=== PATIENT | male | born 2000 | race African-American/Black ===

== ENCOUNTER 2021-02-17 14:11 | Emergency (ER) | payer MEDICAID ==
[~2021-02-17] VITALS: Ht 177.8 cm; Wt 68.0 kg
[2021-02-17] MEDS ORDERED: KETOROLAC 30MG/ML VIAL IM ONE (15:00)
[2021-02-17] MEDS ORDERED: DEXAMETHASONE 1MG TABLET PO ONE (15:00)
[2021-02-17] MEDS ORDERED: AMOXICILLIN/POTASSIUM CLAVULANATE 875/125MG TAB PO ONE (15:00)
[2021-02-17] MEDS ORDERED: ACET-2708 MT (15:01)
[2021-02-17] MEDS ORDERED: MELA10TA3 MT (15:01)
[2021-02-17] MEDS ORDERED: IBUP-2029 MT (15:01)
[2021-02-17] MEDS ORDERED: AMOX-424 MT (15:01)
[2021-02-17] MEDS ORDERED: DEXAMETHASONE 4MG TABLET PO STA (15:18)
[2021-02-17 15:59] VITALS: BP 118/80
== END 2021-02-17 16:01 | disposition home or self-care (01) ==
LOC: ER 14:11
DX: J36 Peritonsillar abscess (principal); Z76.0 Encounter for issue of repeat prescription
CPT/HCPCS: 96372; 99283; J1885; J8540